=== PATIENT | female | born 1975 | race American Indian/Alaskan Native ===

== ENCOUNTER 2019-07-04 07:39 | Emergency (ER) | payer SELFPAY ==
[2019-07-04] MEDS ORDERED: ASPIRIN PO ONE (08:01)
--- NOTE | 2019-07-04 08:32 | XRay Report ---
CHEST 1 VIEW INDICATION / CLINICAL INFORMATION: Chest Pain. COMPARISON: None available. FINDINGS: SUPPORT DEVICES: None. HEART / MEDIASTINUM: No significant abnormality. LUNGS / PLEURA: No significant pulmonary or pleural abnormality. No pneumothorax. ADDITIONAL FINDINGS: No significant additional findings. IMPRESSION: 1. No acute findings. Signer Name: Viktor Castaneda MD Signed: 07/04/2019 8:27 AM Workstation Name: [id number]
[2019-07-04 09:31] LABS: Basophils # (Auto) 0.1 K/mm3 (0.0-0.1); Basophils % (Auto) 0.7 % (0.0-1.8); Eosinophils # (Auto) 0.1 K/mm3 (0.0-0.4); Eosinophils % (Auto) 1.1 % (0.0-4.3); Hematocrit 45.8 % (30.3-42.9); Hemoglobin 15.6 gm/dl (10.1-14.3); Lymphocytes # (Auto) 2.6 K/mm3 (1.2-5.4); Lymphocytes % (Auto) 28.8 % (13.4-35.0); Mean Corpuscular HGB Conc 34 % (30-34); Mean Corpuscular Volume 98 fl (79-97); Monocytes # (Auto) 0.6 K/mm3 (0.0-0.8); Monocytes % (Auto) 6.7 % (0.0-7.3); Platelet Count 159 K/mm3 (140-440); Red Blood Count 4.69 M/mm3 (3.65-5.03); Red Cell Distribution Width 14.2 % (13.2-15.2)
[2019-07-04 09:48] LABS: BUN/Creatinine Ratio 6; Blood Urea Nitrogen 5 mg/dL (7-17); Hemolysis Index 2
[2019-07-04] MEDS ORDERED: ZOFRAN IV ONE (10:32)
[2019-07-04] MEDS ORDERED: NACL 0.9% 500 ML 500 ML IV ONE (10:32)
[2019-07-04] MEDS ORDERED: TYLENOL PO ONE (10:32)
--- NOTE | 2019-07-04 10:33 | Emergency Department Report ---
ED Chest Pain HPI - General Chief Complaint: Chest Pain Stated Complaint: CHEST PAIN/SOB/BLURR VISION Time Seen by Provider: 07/04/19 10:12 Source: patient, RN notes reviewed Mode of arrival: Ambulatory Limitations: No Limitations - History of Present Illness Initial Comments: This is a 43-year-old female. The patient states that she is not . The patient is not known to this provider previously. She reports that she does not have a local primary care doctor. She reports a past medical history of anxiety, thyroid related ophthalmopathy, reported hypothyroidism. In the past, patient has gone to [facility], in [facility]. Medical records have been requested. Please note that this is a holiday weekend, therefore, acquisition of medical records and a timely fashion may be difficult or impossible, depending on the aforementioned hospitals are clerical staffing. Today, the patient presents to the ER with a complaint of nontraumatic chest wall pain, binocular blurry vision, anxiety, and feeling shaky. She endorses multiple psychosocial stressors, including work, and a recent relocation. She reports that she's had similar symptoms in the past, when her "thyroid gets out of control." She reports running out of her thyroid medication a few days ago. She denies headache, neck pain, abdominal pain. To me, she denies exertional shortness of breath. Positive nausea, no vomiting. No recent aspirin consumption. Positive family history for ACS, reports her father had a myocardial infarction at the age of 59. The patient denies focal extremity weakness, numbness. She denies ataxia. She indicates her symptoms are similar to prior episode of panic attack, and thyroid ophthalmopathy. MD Complaint: chest pain, other -: Gradual, hour(s) (since 1:00 in the morning, present almost for 12 hours) Pain Location: substernal Pain Radiation: RUE Quality: aching Consistency: constant Improves With: rest Worsens With: palpation Aspirin use within the Past 7 Days: (0) No - Related Data On Oral Contraceptives: No Previous Rx's Medication Instructions Recorded Last Taken Type Aspirin [Aspirin BABY CHEW TAB] 81 mg PO QDAY #30 tab.chew 07/04/19 Unknown Rx Levothyroxine [Synthroid] 100 mcg PO QAM #30 tablet 07/04/19 Unknown Rx Allergies Allergy/AdvReac Type Severity Reaction Status Date / Time No Known Allergies Allergy Verified 07/04/19 10:12 Heart Score - HEART Score History: Slightly suspicious EKG: Non-specific Age: < 45 Risk factors: 1-2 risk factors Troponin: < normal limit HEART Score: 2 - Critical Actions Critical Actions: 0-3 pts:0.9-1.7%risk of adverse cardiac event.Candidate for discharge ED Review of Systems ROS: Stated complaint: CHEST PAIN/SOB/BLURR VISION Other details as noted in HPI Constitutional: denies: fever Eyes: vision change. denies: eye discharge ENT: denies: as per HPI, congestion Respiratory: denies: cough, shortness of breath, SOB with exertion, SOB at rest Cardiovascular: chest pain. denies: palpitations Gastrointestinal: nausea. denies: vomiting Genitourinary: denies: dysuria Musculoskeletal: arthralgia, myalgia Skin: denies: lesions Neurological: weakness Psychiatric: anxiety ED Past Medical Hx - Past Medical History Previous Medical History?: Yes Additional medical history: Thyroid - Surgical History Past Surgical History?: Yes Additional Surgical History: Thyroidectomy - Social History Smoking Status: Former Smoker Substance Use Type: Alcohol, Prescribed - Medications Home Medications: Home Medications Medication Instructions Recorded Confirmed Last Taken Type Aspirin [Aspirin BABY CHEW TAB] 81 mg PO QDAY #30 tab.chew 07/04/19 Unknown Rx Levothyroxine [Synthroid] 100 mcg PO QAM #30 tablet 07/04/19 Unknown Rx ED Physical Exam - General Limitations: No Limitations General appearance: alert, in no apparent distress - Head Head exam: Present: atraumatic, normocephalic - Eye Eye exam: Present: normal appearance, PERRL, EOMI, other (visual acuity intact to finger counting, color perception, and reading at a close distance. There is no direct or consensual photophobia. The cornea is clear, and not cloudy. Visual acuity is 20/25 bilaterally). Absent: nystagmus - ENT ENT exam: Present: normal exam, normal orophraynx, mucous membranes moist, normal external ear exam - Neck Neck exam: Present: normal inspection, full ROM. Absent: tenderness, meningismus - Respiratory Respiratory exam: Present: normal lung sounds bilaterally, chest wall tenderness. Absent: respiratory distress, wheezes, rales, rhonchi, stridor - Cardiovascular Cardiovascular Exam: Present: regular rate, normal rhythm, normal heart sounds. Absent: bradycardia, tachycardia, irregular rhythm, systolic murmur, diastolic murmur, rubs, gallop - GI/Abdominal GI/Abdominal exam: Present: soft. Absent: distended, tenderness, guarding, rebound, rigid, pulsatile mass - Extremities Exam Extremities exam: Present: normal inspection, full ROM, other (2+ pulses noted in the bilateral upper, lower extremities. There is no long bony tenderness. The pelvis is stable. Muscular compartments are soft. There is no redness, pus, streaking or crepitus noted.). Absent: pedal edema, joint swelling, calf tenderness - Back Exam Back exam: Present: normal inspection, full ROM. Absent: tenderness, CVA tenderness (R), CVA tenderness (L), paraspinal tenderness, vertebral tenderness - Neurological Exam Neurological exam: Present: alert (there is no pass pointing. There is a negative pronator drift. There is normal [id number]. The patient walks with a steady gait), oriented X3, normal gait, other (Extraocular movements are intact bilaterally. There is no facial droop. The tongue is midline. Patient speaking in full complete sentences. There is no dysphonia. Hearing is grossly intact bilaterally. Shoulder shrug is intact bilaterally. 5/5 strength bilateral upper, lower extremities. Sensation is intact to light touch bilateral upper, lower extremities.). Absent: motor sensory deficit - Psychiatric Psychiatric exam: Present: anxious - Skin Skin exam: Present: warm, dry, intact, normal color. Absent: rash ED Course Vital Signs 07/04/19 07/04/19 07/04/19 07:54 10:18 10:39 Temperature 98.2 F Pulse Rate 82 52 L Respiratory 18 18 Rate Blood Pressure 94/56 O2 Sat by Pulse 98 96 100 Oximetry 07/04/19 07/04/19 11:01 11:30 Temperature Pulse Rate 54 L 50 L Respiratory 8 L 15 Rate Blood Pressure 89/41 105/55 O2 Sat by Pulse 99 96 Oximetry - Reevaluation(s) Reevaluation #1: 07/04/19 11:25 Differential diagnosis, including not limited to: GERD, gastritis, anxiety, costochondritis, acute coronary syndrome, aortic disease, thyroid ophthalmopathy Assessment and plan: 43-year-old female with multiple complaints, including chest wall pain, and subjective binocular blurry vision. She denies headache and neck pain. She is not tachycardic, she is not hypoxic, she is not tachypn eic, she has no DVT or pulmonary embolism risk factors, and she is low risk by well's criteria. However, we don't have any of the patient's old medical records and this is the first visit to her Hospital. While I clinically doubt acute aortic disease, given her endorse complaints of chest pain and binocular blurry vision, we have recommended an emergent CT scan of the chest to exclude proximal aortic disease. CT scan of the brain is also requested. Currently in no acute distress. Objective laboratory testing unremarkable. 07/04/19 12:09 Reevaluation #2: 07/04/19 13:03 Previous medical records are reviewed. Patient reported to be on Synthroid, 100 g. Troponin is negative 2. CT scan of the brain is negative. CT scan of the chest is negative. EKG unchanged 2. Patient resting comfortable, and in no acute distress. The patient may follow up with an outpatient primary care doctor, cheerleading coach and one of our local cardiology groups. ANTOINE score - Antoine Score Age > 65: (0) No Aspirin use within the Past 7 Days: (0) No 3 or more CAD Risk Factors: (0) No 2 or more Angina events in past 24 hrs: (0) No Known CAD with more than 50% Stenosis: (0) No Elevated Cardiac Markers: (0) No ST Deviation Greater than 0.5mm: (0) No ANTOINE Score: 0 ED Medical Decision Making - Lab Data Result diagrams: 07/04/19 09:15 07/04/19 09:15 Vital Signs 07/04/19 07/04/19 07/04/19 07:54 10:18 10:39 Temperature 98.2 F Pulse Rate 82 52 L Respiratory 18 18 Rate Blood Pressure 94/56 O2 Sat by Pulse 98 96 100 Oximetry 07/04/19 07/04/19 11:01 11:30 Temperature Pulse Rate 54 L 50 L Respiratory 8 L 15 Rate Blood Pressure 89/41 105/55 O2 Sat by Pulse 99 96 Oximetry Lab Results 07/04/19 07/04/19 07/04/19 Range/Units 09:15 09:15 09:15 WBC 9.1 (4.5-11.0) K/mm3 RBC 4.69 (3.65-5.03) M/mm3 Hgb 15.6 H (10.1-14.3) gm/dl Hct 45.8 H (30.3-42.9) % MCV 98 H (79-97) fl MCH 33 H (28-32) pg MCHC 34 (30-34) % RDW 14.2 (13.2-15.2) % Plt Count 159 (140-440) K/mm3 Lymph % (Auto) 28.8 (13.4-35.0) % Wirt % (Auto) 6.7 (0.0-7.3) % Eos % (Auto) 1.1 (0.0-4.3) % Baso % (Auto) 0.7 (0.0-1.8) % Lymph # 2.6 (1.2-5.4) K/mm3 Wirt # 0.6 (0.0-0.8) K/mm3 Eos # 0.1 (0.0-0.4) K/mm3 Baso # 0.1 (0.0-0.1) K/mm3 Seg Neutrophils % 62.7 (40.0-70.0) % Seg Neutrophils # 5.7 (1.8-7.7) K/mm3 Sodium 139 (137-145) mmol/L Potassium 4.9 (3.6-5.0) mmol/L Chloride 102.5 (98-107) mmol/L Carbon Dioxide 28 (22-30) mmol/L Anion Gap 13 mmol/L BUN 5 L (7-17) mg/dL Creatinine 0.8 (0.7-1.2) mg/dL Estimated GFR > 60 ml/min BUN/Creatinine Ratio 6 % Glucose 95 (65-100) mg/dL Calcium 10.0 (8.4-10.2) mg/dL Magnesium (1.7-2.3) mg/dL Total Creatine Kinase (30-135) units/L Troponin T < 0.010 < 0.010 (0.00-0.029) ng/mL TSH (0.270-4.200) mlU/mL Free T4 (0.76-1.46) ng/dL HCG, Quant (0-4) mIU/mL Salicylates (2.8-20.0) mg/dL Acetaminophen (10.0-30.0) ug/mL Plasma/Serum Alcohol (0-0.07) % 07/04/19 07/04/19 07/04/19 Range/Units 11:12 11:12 11:12 WBC (4.5-11.0) K/mm3 RBC (3.65-5.03) M/mm3 Hgb (10.1-14.3) gm/dl Hct (30.3-42.9) % MCV (79-97) fl MCH (28-32) pg MCHC (30-34) % RDW (13.2-15.2) % Plt Count (140-440) K/mm3 Lymph % (Auto) (13.4-35.0) % Wirt % (Auto) (0.0-7.3) % Eos % (Auto) (0.0-4.3) % Baso % (Auto) (0.0-1.8) % Lymph # (1.2-5.4) K/mm3 Wirt # (0.0-0.8) K/mm3 Eos # (0.0-0.4) K/mm3 Baso # (0.0-0.1) K/mm3 Seg Neutrophils % (40.0-70.0) % Seg Neutrophils # (1.8-7.7) K/mm3 Sodium (137-145) mmol/L Potassium (3.6-5.0) mmol/L Chloride (98-107) mmol/L Carbon Dioxide (22-30) mmol/L Anion Gap mmol/L BUN (7-17) mg/dL Creatinine (0.7-1.2) mg/dL Estimated GFR ml/min BUN/Creatinine Ratio % Glucose (65-100) mg/dL Calcium (8.4-10.2) mg/dL Magnesium 2.10 (1.7-2.3) mg/dL Total Creatine Kinase 132 (30-135) units/L Troponin T (0.00-0.029) ng/mL TSH (0.270-4.200) mlU/mL Free T4 (0.76-1.46) ng/dL HCG, Quant (0-4) mIU/mL Salicylates < 0.3 L (2.8-20.0) mg/dL Acetaminophen < 5.0 L (10.0-30.0) ug/mL Plasma/Serum Alcohol (0-0.07) % 07/04/19 07/04/19 07/04/19 Range/Units 11:12 11:14 11:14 WBC (4.5-11.0) K/mm3 RBC (3.65-5.03) M/mm3 Hgb (10.1-14.3) gm/dl Hct (30.3-42.9) % MCV (79-97) fl MCH (28-32) pg MCHC (30-34) % RDW (13.2-15.2) % Plt Count (140-440) K/mm3 Lymph % (Auto) (13.4-35.0) % Wirt % (Auto) (0.0-7.3) % Eos % (Auto) (0.0-4.3) % Baso % (Auto) (0.0-1.8) % Lymph # (1.2-5.4) K/mm3 Wirt # (0.0-0.8) K/mm3 Eos # (0.0-0.4) K/mm3 Baso # (0.0-0.1) K/mm3 Seg Neutrophils % (40.0-70.0) % Seg Neutrophils # (1.8-7.7) K/mm3 Sodium (137-145) mmol/L Potassium (3.6-5.0) mmol/L Chloride (98-107) mmol/L Carbon Dioxide (22-30) mmol/L Anion Gap mmol/L BUN (7-17) mg/dL Creatinine (0.7-1.2) mg/dL Estimated GFR ml/min BUN/Creatinine Ratio % Glucose (65-100) mg/dL Calcium (8.4-10.2) mg/dL Magnesium (1.7-2.3) mg/dL Total Creatine Kinase (30-135) units/L Troponin T (0.00-0.029) ng/mL TSH 1.150 (0.270-4.200) mlU/mL Free T4 1.38 (0.76-1.46) ng/dL HCG, Quant (0-4) mIU/mL Salicylates (2.8-20.0) mg/dL Acetaminophen (10.0-30.0) ug/mL Plasma/Serum Alcohol < 0.01 (0-0.07) % 07/04/19 Range/Units 11:14 WBC (4.5-11.0) K/mm3 RBC (3.65-5.03) M/mm3 Hgb (10.1-14.3) gm/dl Hct (30.3-42.9) % MCV (79-97) fl MCH (28-32) pg MCHC (30-34) % RDW (13.2-15.2) % Plt Count (140-440) K/mm3 Lymph % (Auto) (13.4-35.0) % Wirt % (Auto) (0.0-7.3) % Eos % (Auto) (0.0-4.3) % Baso % (Auto) (0.0-1.8) % Lymph # (1.2-5.4) K/mm3 Wirt # (0.0-0.8) K/mm3 Eos # (0.0-0.4) K/mm3 Baso # (0.0-0.1) K/mm3 Seg Neutrophils % (40.0-70.0) % Seg Neutrophils # (1.8-7.7) K/mm3 Sodium (137-145) mmol/L Potassium (3.6-5.0) mmol/L Chloride (98-107) mmol/L Carbon Dioxide (22-30) mmol/L Anion Gap mmol/L BUN (7-17) mg/dL Creatinine (0.7-1.2) mg/dL Estimated GFR ml/min BUN/Creatinine Ratio % Glucose (65-100) mg/dL Calcium (8.4-10.2) mg/dL Magnesium (1.7-2.3) mg/dL Total Creatine Kinase (30-135) units/L Troponin T (0.00-0.029) ng/mL TSH (0.270-4.200) mlU/mL Free T4 (0.76-1.46) ng/dL HCG, Quant < 2 (0-4) mIU/mL Salicylates (2.8-20.0) mg/dL Acetaminophen (10.0-30.0) ug/mL Plasma/Serum Alcohol (0-0.07) % - EKG Data -: EKG Interpreted by Hi EKG shows normal: sinus rhythm Rate: normal - EKG Data When compared to previous EKG there are: previous EKG unavailable 07/04/19 12:09 There is no prior EKG available for comparison. This is a sinus rhythm, 65 bpm, QTC within normal limits, W[place] interval within normal limits, it she'll enlargement, poor R progression, there is low voltage, the EKG is abnormal, the EKG is not consistent with ST elevation myocardial infarction. - Radiology Data Radiology results: pending, report reviewed, image reviewed X-ray the chest is negative for acute disease Critical care attestation.: If time is entered above; I have spent that time in minutes in the direct care of this critically ill patient, excluding procedure time. ED Disposition Clinical Impression: Chest wall pain, History of thyroid disorder Disposition: TO HOME OR SELFCARE Is pt being admited?: No Does the pt Need Aspirin: No Condition: Good Additional Instructions: Take Synthroid medication as directed. Take [id number] Motrin, and acetaminophen as needed for chest wall pain. Recommend follow-up with an outpatient virtual reality specialist within the next 3 days. For the patient's convenience, she may contact any of the local cardiology group to arrange close outpatient follow-up. Recommend follow-up with an cheerleading coach within the next 2 weeks. This hospital does not have an cheerleading coach on-call. Therefore, the patient should check with her insurance company to see what curriculum and instruction specialist are available in network, and the local geographic area, or she may perform online search In addition, should follow up with an outpatient primary care doctor within the next month. Return to the emergency room right away with projectile vomiting, change in mental status, confusion, inability to tolerate liquid feeds, new, worse or different symptoms not present on the initial emergency room evaluation. Referrals: [facility] [Provider Group] - 3-5 Days [facility] [Provider Group] - 3-5 Days CORAZON AARON MD [Staff Physician] - 3-5 Days
--- NOTE | 2019-07-04 12:48 | Cat Scan Report ---
CT head/brain wo con INDICATION: Binocular blurry vision. TECHNIQUE: Routine CT head without contrast. All CT scans at this location are performed using CT dos e reduction for ALARA by means of automated exposure control. COMPARISON: None. FINDINGS: BRAIN / INTRACRANIAL CONTENTS: No acute hemorrhage, mass effect, midline shift, or hydrocephalus. No appreciable acute large territorial or lacunar infarct. No chronic infarct or focal atrophy. Normal b rain volume and ventricular/sulcal size for age. ORBITS: No significant abnormality of visualized orbits. SINUSES / MASTOIDS: No significant abnormality of visualized sinuses and mastoid air cells. ADDITIONAL FINDINGS: None. IMPRESSION: 1. No acute intracranial abnormality. Signer Name: Lorenzo Bryant MD Signed: 07/04/2019 12:43 PM Workstation Name: [id number]
--- NOTE | 2019-07-04 12:52 | Cat Scan Report ---
CTA CHEST WITH IV CONTRAST INDICATION: Acute onset chest pain with dyspnea. TECHNIQUE: Axial CT images were obtained through the chest after injection of 100 mL IV contrast. 3 plane MIP re constructions were produced. All CT scans at this location are performed using CT dose reduction for ALARA by means of automated exposure control. COMPARISON: None available. FINDINGS: PULMONARY ARTERIES: No pulmonary emboli. AORTA AND ARTERIES: No acute abnormality. MEDIASTINUM: No mass, lymphadenopathy or other significant abnormality. The heart is normal in size w ithout a pericardial effusion. The trachea and main bronchi are patent and normal in caliber. LUNGS: No suspicious consolidation, nodule or mass. No pneumothorax or pleural effusion. ADDITIONAL FINDINGS: None. UPPER ABDOMEN: No acute findings. BONES: No significant osseous abnormality. IMPRESSION: 1. No CT evidence for pulmonary embolism. 2. No acute findings. Signer Name: Viktor Castaneda MD Signed: 07/04/2019 12:48 PM Workstation Name: [id number]
[2019-07-04 13:35] VITALS: BP 115/76
== END 2019-07-04 13:35 | disposition home or self-care (01) ==
LOC: ED 07:39
DX: R07.89 Other chest pain (principal); R11.0 Nausea; H53.8 Other visual disturbances; E07.9 Disorder of thyroid, unspecified
CPT/HCPCS: 36415; 70450; 71045; 71275; 80048; 82550; 83735; 84439; 84443; 84484; 84702; 85025; 93005; 93010; 96374; 99285; J2405; J7040; Q9967; 80320; G0480